=== PATIENT | male | born 1950 | race Caucasian/White ===

== ENCOUNTER 2017-12-03 10:03 | Day surgery (SDC) | payer OTHER ==
[~2017-12-03] VITALS: Ht 180.3 cm; Wt 108.8 kg
[~2017-12-03 10:03] MED LIST: AMOXICILLIN500 MG PO; CENTRUM SILVER1 EAC3 PO; COUMADIN1 MG PO; CYANOCOBALAMI100 MCG PO; CYMBALTA60 MG PO; Colace PO; Coumadin Protocol PO; Coumadin,Jantoven PO; Cymbalta PO; DIOVAN160 MG PO; DOLOPHINE HCL10 MG PO; Diovan PO; Levaquin PO; METHADONE10 MG PO; METHadone HCl PO; MILK THISTLE150 MG PO; MILK THISTLE200 MG PO; MULTIVITAMIN1 EAC1 PO; Methadone PO; Milk Thistle PO; Multivitamin PO; NON-ASPIRIN325 MG PO; NORVASC2.5 MG PO; NYQUIL D COLD295 ML PO; Norvasc PO; OXYCODONE HCL10 MG PO; OXYCODONE HCL5 MG PO; OXYCONTIN20 MG PO; OxyCONTIN PO; PERCOCET PO; SAM-E400 MG PO; SENOKOT S,PE1 TABLET PO; Senokot S,Pericolace PO; TYLENOL REGULA325 MG PO; Theragran PO; VITAMIN C500 M1 PO; Vitamin C PO; ZANAFLEX4 M1 PO; ZESTRIL20 MG PO; oxyCODONE PO
[2017-12-03 11:24] VITALS: BP 155/79
[2017-12-03] MEDS ORDERED: OXYCODONE HCL5 MG PO (14:36)
[2017-12-03 16:10] VITALS: BP 179/87
[2017-12-03 17:20] VITALS: BP 184/88
== END 2017-12-03 18:30 | disposition home or self-care (01) ==
LOC: SDC 10:03
DX: K43.2 Incisional hernia without obstruction or gangrene (principal); K66.0 Peritoneal adhesions (postprocedural) (postinfection); I10 Essential (primary) hypertension; Z87.891 Personal history of nicotine dependence; Z86.19 Personal history of other infectious and parasitic diseases; G89.29 Other chronic pain; Z79.891 Long term (current) use of opiate analgesic
CPT/HCPCS: C1781; J0690; J1170; J2250; J3010

== ENCOUNTER 2018-06-16 11:53 | Emergency (ER) | payer OTHER ==
[~2018-06-16] VITALS: Ht 182.9 cm; Wt 103.9 kg
[2018-06-16 15:56] LABS: HEMATOCRIT 42.1 % (38.0-50.0); HEMOGLOBIN 14.9 G/DL (12.5-16.6); MCH 30.4 PG (29.0-34.0); MCHC 35.4 G/DL (30.0-36.0); MCV 85.9 FL (86-99); PLATELET COUNT 183 K/uL (156-360); RBC DIS.WIDTH-CV 12.5 % (11.8-14.6); RBC DIS.WIDTH-SD 39.3 % (39-53); WHITE BLOOD COUNT 8.6 K/uL (4.1-10.2)
[2018-06-16 16:07] LABS: CHLORIDE 105 mEq/L (99-109); POTASSIUM 3.9 mEq/L (3.7-5.4); SODIUM 139 mEq/L (136-147)
[2018-06-16 16:09] LABS: GLUCOSE 97 mg/dL (70-99)
[2018-06-16 16:13] LABS: CREATININE 0.9 mg/dL (0.6-1.3); GFR ESTIMATE (CALCULATED) > 59 mL/min/ (58.99-99999)
[2018-06-16 16:14] LABS: UREA NITROGEN (BUN) 12 mg/dL (9-23)
[2018-06-16 16:57] LABS: APPEARANCE CLEAR ((CLEAR)); BILIRUBIN NEGATIVE; BLOOD SMALL; COLOR YELLOW ((YELLOW)); GLUCOSE (STRIP) NEGATIVE; KETONES NEGATIVE; LEUKOCYTES NEGATIVE; NITRITE NEGATIVE; PROTEIN (STRIP) NEGATIVE; SPECIFIC GRAVITY 1.012 (1.000-1.030); UROBILINOGEN 0.2 MG/DL (0.2-1.0)
[2018-06-16 16:59] LABS: AMPHETAMINE NEGATIVE (500 ng/mL); BARBITURATES NEGATIVE (200 ng/mL); BENZODIAZEPINES PRESUMPTIVE POSITIVE (150 ng/mL); COCAINE NEGATIVE (150 ng/mL); METHADONE NEGATIVE (200 ng/mL); METHAMPHETAMINE NEGATIVE (500 ng/mL); OPIATES (MORPHINE) NEGATIVE (100 ng/mL); OXYCODONE NEGATIVE (100 ng/mL); PHENCYCLIDINE NEGATIVE (25 ng/mL); PROPOXYPHENE NEGATIVE (300 ng/mL); THC CANNABINOIDS NEGATIVE (50 ng/mL); TRICYCLIC ANTIDEPRESSANTS NEGATIVE (300 ng/mL)
[2018-06-16 17:00] LABS: BUPRENORPHINE NEGATIVE (10 ng/mL)
[2018-06-16 17:21] LABS: BENZODIAZEPINES, URINE SCREEN POSITIVE (200 ng/mL)
[2018-06-16 17:51] LABS: BACTERIA RARE /HPF; EPITHELIAL CELLS NONE SEEN /HPF; MUCUS 2+ /LPF; UCUL ADDED? NO; WHITE BLOOD CELLS 0-5 /HPF (0-5)
[2018-06-16 19:50] VITALS: BP 116/91
== END 2018-06-16 19:52 ==
LOC: EME 11:53
PROVIDERS: Emergency Medicine
DX: F33.2 Major depressive disorder, recurrent severe without psychotic features (principal); R45.851 Suicidal ideations; F41.1 Generalized anxiety disorder; I10 Essential (primary) hypertension; Z87.891 Personal history of nicotine dependence
CPT/HCPCS: 80048; 81003; 84999; 85027; 90837; 99281; 99285